=== PATIENT | female | born 1965 | race Caucasian/White ===

== ENCOUNTER → 2017-01-12 | Day surgery (SDC) | payer OTHER ==
[~2017-01-12] VITALS: Ht 170.2 cm; Wt 90.7 kg
[~2017-01-12] MED LIST: ARMOUR THYROID60 M1 PO; COMPAZINE10 M1; DILTIAZEM 24HR180 MG PO; DIVALPROEX SOD250 M2 PO; DOXEPIN HCL50 MG PO; EFFEXOR XR75 M1 PO; MAXALT10 M1 PO; NADOLOL40 M1 PO; OXYCODONE-ACET1 EACH PO
--- NOTE | 2017-01-12 11:49 | Operative Report ---
Operative/Inv Procedure Report Surgery Date: 01/12/17 Name of Procedure: Left lateral malleolus open reduction internal fixation Pre-Operative Diagnosis: Left lateral malleolus fracture Post-Operative Diagnosis: Left lateral malleolus fracture Estimated Blood Loss: adam Surgeon/Survey Interviewer: DELIA ANAND MD Anesthesia: laryngeal mask airway, block Implants: [employer] 4-hole distal fibular locking plate left proximal number [id number] Complications: None Condition: Stable to PACU Operative Indication: This is a 51-year-old who injured her left ankle after a fall. X-rays showed displaced lateral malleolus fracture. Risks and benefits of the procedure were discussed with the patient at length. Risks include but are not limited to nerve damage, muscle damage, infection, blood loss, blood clots, pulmonary embolus, and even . The patient agreed to the above risks and elected to proceed with surgery. Operative/Procedure Note Note: The patient was placed supine on the operating room table. A tourniquet was applied. The lower extremity was prepped and draped in the normal sterile fashion. A timeout was performed before the incision. The site marking was visualized before incision. After the leg was prepped and draped, an Esmarch was used to exsanguinate the extremity. The tourniquet was inflated. A longitudinal incision was made over the distal fibula. Soft tissue dissection was then performed. Care was taken to protect the neurovascular structures. The fracture site was identified. A rongeur was used to remove soft tissue interposition as well as a bony fragment interposed in the fracture site. The fracture site was irrigated. A reduction clamp was then applied to reduce the fracture anatomically. A 3.5 mm drill was then used to drill the near cortex. A 2.5 mm drill was then used to drill the far cortex and a lag screw was then inserted. A distal fibular locking plate was then applied. The reduction tack was first used and a cortical screw was then placed. The distal locking screw holes were filled. Next the proximal 2 screw holes were filled with cortical locking screws. The ankle was then taken through a range of motion and under stress views the syndesmosis was noted to be stable. The wound was copiously irrigated. The fascia was closed with 0 Vicryl suture. The skin was closed with 2-0 Vicryl suture and a 3-0 nylon suture in a horizontal mattress fashion. A dry sterile dressing was applied. A posterior and U-splint was then applied. The tourniquet was let down. The patient was then transferred to PACU in stable condition.
--- NOTE | 2017-01-13 12:05 | RADIOLOGY REPORT ---
EXAMINATION: XR ANKLE, LEFT CLINICAL INFORMATION: Left ankle fixation COMPARISON: None TECHNIQUE: Fluoroscopic assistance provided to Dr. Hebert Perkins in the operating room. FINDINGS: The total fluoroscopy time is 0.4 minutes. The total dose is 0.355 mGy. 9 fluoroscopic images are reviewed. The initial image demonstrates a vertical corticated screw within the distal aspect of the fibula. Subsequently a lateral plate is noted along the lateral aspect of the distal fibula. Multiple transverse cortical screws are subsequently placed. The alignment appears within normal range. There is no evidence for hardware loosening. IMPRESSION: Limited fluoroscopic images. Status post open reduction and internal fixation of presumed left distal fibular fracture.
== END ==
LOC: STS 01:48
DX: S82.62XA Displaced fracture of lateral malleolus of left fibula, initial encounter for closed fracture (principal); W19.XXXA Unspecified fall, initial encounter; I10 Essential (primary) hypertension
CPT/HCPCS: 73610-LT; 81025; J2250

== ENCOUNTER → 2017-09-21 | Day surgery (SDC) | payer OTHER ==
[~2017-09-21] VITALS: Ht 170.2 cm; Wt 99.8 kg
[~2017-09-21] MED LIST changes: +CENTRUM SILVER1 EAC3 PO; -COMPAZINE10 M1; +COMPAZINE10 M1 PO; +DOXEPIN HCL25 MG PO; +GLUCOSAMINE CH1 EAC6 PO; +HAIR, SKIN & N1 EACH PO; +THYROID SUPPORT PO; +VITAMIN D2000 UNIT PO
--- NOTE | 2017-09-21 07:40 | Operative Report ---
Operative/Inv Procedure Report Surgery Date: 09/21/17 Name of Procedure: Left ankle removal of hardware Pre-Operative Diagnosis: Left ankle painful hardware Post-Operative Diagnosis: Left ankle painful hardware Estimated Blood Loss: scant Surgeon/Mixed Liv[employer] Farmer: Hebert Perkins MD Anesthesia: laryngeal mask airway Complications: None Condition: Stable to PACU Operative Indication: This is a 52-year-old female who underwent a left ankle open reduction internal fixation. She did well postoperatively. She developed discomfort superficial to the plate. Risks and benefits of the procedure were discussed with the patient at length. Risks include but are not limited to nerve damage, muscle damage, infection, blood loss, blood clots, pulmonary embolus, and even . The patient agreed to the above risks and elected to proceed with surgery. Operative/Procedure Note Note: The patient was placed supine on the operating room table. A tourniquet was applied. The lower extremity was prepped and draped in the normal sterile fashion. A timeout was performed before the incision. The site marking was visualized before incision. After the leg was prepped and draped, an Esmarch was used to exsanguinate the extremity. The tourniquet was inflated. An incision was made in line with the previous distal fibular incision. Soft tissue dissection performed down to the plate. The screws were removed. An elevator was used to remove the plate from the bone. The screw sites were then curetted. The interfragmentary screw was also removed. X-rays were taken to ensure there WAs no retained hardware. The wound was copiously irrigated. The tourniquet was let down. Any bleeding vessels were identified and cauterized. The fascia was closed with 0 Vicryl suture. The skin was closed with 2-0 Vicryl suture as well as a 3-0 nylon stitch in a horizontal mattress fashion. The skin was injected with 0.25% Marcaine. A dry sterile dressing was applied. The patient was transferred to PACU in stable condition.
--- NOTE | 2017-09-22 08:37 | RADIOLOGY REPORT ---
EXAMINATION: CR LEFT ANKLE/INTRAOPERATIVE FLUOROSCOPY CLINICAL INDICATION: Removal of hardware from left ankle in OR COMPARISON: None TECHNIQUE/FINDINGS: Fluoroscopic equipment was dedicated to the operating room for the performance of an intraoperative procedure. Single spot film was acquired and is archived in PACS. Please refer to operative notes for procedural detail. FLUOROSCOPY TIME: 0.01 minutes. IMPRESSION: Administrative dictation for intraoperative fluoroscopy and image archiving in PACS. Please refer to operative notes for details.
== END ==
LOC: STS 01:13
DX: T84.84XA Pain due to internal orthopedic prosthetic devices, implants and grafts, initial encounter (principal); E06.3 Autoimmune thyroiditis; I10 Essential (primary) hypertension
CPT/HCPCS: 73600-LT; 81025; J0131; J2250